=== PATIENT | female | born 1990 | race African-American/Black ===

== ENCOUNTER 2021-06-20 13:38 | Emergency (ER) | payer OTHER ==
[~2021-06-20] VITALS: Ht 167.6 cm; Wt 62.1 kg
[2021-06-20 13:39] VITALS: BP 146/75
[2021-06-20] MEDS ORDERED: ACETAMINOPHEN TAB 650MG DOSE (2X325MG) PO ONE (17:30)
[2021-06-20] MEDS ORDERED: LIDOCAINE 5% (LIDODERM) PATCH TD ONE (17:30)
[2021-06-20] MEDS ORDERED: PRED20TA PO (17:32)
[2021-06-20] MEDS ORDERED: **NOTE PATIENT COMMENT** MISC XX SCH (21:00)
== END 2021-06-20 21:50 | disposition home or self-care (01) ==
LOC: M ED 13:38
DX: M54.50 Low back pain, unspecified (principal)

== ENCOUNTER 2021-09-27 12:19 | Emergency (ER) | payer OTHER ==
[~2021-09-27] VITALS: Ht 165.1 cm; Wt 61.8 kg
[~2021-09-27 12:19] MED LIST: PRED20TA PO
[2021-09-27] MEDS ORDERED: MAPA500C PO (12:28)
[2021-09-27] MEDS ORDERED: IBUP200C25 PO (12:28)
[2021-09-27] MEDS ORDERED: diazePAM 10 MG TAB PO ONE (13:15)
[2021-09-27] MEDS ORDERED: KETOROLAC 60MG 2ML VIAL IM ONE (13:15)
[2021-09-27 13:33] LABS: BASO % 0.5 % (0.0-1.0); EOS # 0.1 10^3/uL (0.0-0.5); EOS % 2.3 % (0.0-3.0); HEMATOCRIT 32.1 % (36.0-47.0); HEMOGLOBIN 11.2 g/dl (12.0-15.5); LYMPH # 1.2 10^3/uL (1.5-5.0); LYMPH % 28.6 % (24.0-44.0); MEAN CORPUSCULAR HEMOGLOBIN 29.5 pg (27.0-33.0); MEAN CORPUSCULAR HGB CONC 34.9 g/dl (32.0-36.5); MEAN CORPUSCULAR VOLUME 84.5 fl (80.0-96.0); MONO # 0.4 10^3/uL (0.0-0.8); MONO % 9.2 % (2.0-8.0); NEUTROPHILS # 2.6 10^3/uL (1.5-8.5); NEUTROPHILS % 59.2 % (36.0-66.0); PLATELET COUNT, AUTOMATED 196 10^3/uL (150-450); WHITE BLOOD COUNT 4.3 10^3/uL (4.0-10.0)
[2021-09-27] MEDS ORDERED: NAPR-837 PO (17:12)
[2021-09-27] MEDS ORDERED: LIDO1PAD TOP (17:12)
[2021-09-27] MEDS ORDERED: METH-1165 PO (17:12)
[2021-09-27 17:23] VITALS: BP 124/63
== END 2021-09-27 17:24 | disposition home or self-care (01) ==
LOC: M ED 12:19
DX: N83.291 Other ovarian cyst, right side (principal); M54.50 Low back pain, unspecified
CPT/HCPCS: 36415; 76856; 80047; 84702; 85025; 93976; 96374; 99284; J1885

== ENCOUNTER 2022-02-20 20:43 | Emergency (ER) | payer OTHER ==
[~2022-02-20] VITALS: Ht 165.1 cm; Wt 61.4 kg
[~2022-02-20 20:43] MED LIST changes: +IBUP200C25 PO; +LIDO1PAD TOP; +MAPA500C PO; +METH-1165 PO; +NAPR-837 PO
[2022-02-20] MEDS ORDERED: VITA100T59 PO (21:19)
[2022-02-21 02:05] LABS: HEMATOCRIT 32.6 % (36.0-47.0); HEMOGLOBIN 11.3 g/dl (12.0-15.5); MEAN CORPUSCULAR HEMOGLOBIN 28.4 pg (27.0-33.0); MEAN CORPUSCULAR HGB CONC 34.7 g/dl (32.0-36.5); MEAN CORPUSCULAR VOLUME 81.9 fl (80.0-96.0); PLATELET COUNT, AUTOMATED 198 10^3/uL (150-450); RED BLOOD COUNT 3.98 10^6/uL (4.00-5.40); WHITE BLOOD COUNT 3.3 10^3/uL (4.0-10.0)
[2022-02-21 02:28] LABS: URINE PREG TEST NEGATIVE (NEGATIVE)
[2022-02-21 02:32] LABS: ALBUMIN 4.1 G/DL (3.2-5.2); ALT/SGPT 11 U/L (7.0-40); BILIRUBIN,TOTAL 0.5 MG/DL (0.3-1.2); BLOOD UREA NITROGEN 13 MG/DL (9-23); CALCIUM LEVEL 8.9 MG/DL (8.5-10.1); CARBON DIOXIDE LEVEL 24 MMOL/L (20-31); CHLORIDE LEVEL 104 MMOL/L (98-107); CREATININE FOR GFR 0.77 MG/DL (0.55-1.30); GLOMERULAR FILTRATION RATE > 60.0 (>60); GLUCOSE, FASTING 100 MG/DL (60-100); POTASSIUM SERUM 3.6 MMOL/L (3.5-5.1); SODIUM LEVEL 138 MMOL/L (136-145); TOTAL PROTEIN 7.1 G/DL (5.7-8.2)
[2022-02-21] MEDS ORDERED: diazePAM 10MG/2ML SYRINGE (J3360 PER 5MG) IM ONE (03:30)
[2022-02-21] MEDS ORDERED: KETOROLAC 60MG 2ML VIAL IM ONE (03:30)
[2022-02-21 05:45] VITALS: BP 116/57
== END 2022-02-21 06:24 | disposition home or self-care (01) ==
LOC: M ED 20:43
DX: G89.29 Other chronic pain (principal); M51.26 Other intervertebral disc displacement, lumbar region; M51.27 Other intervertebral disc displacement, lumbosacral region; M48.061 Spinal stenosis, lumbar region without neurogenic claudication; M48.07 Spinal stenosis, lumbosacral region; Z79.899 Other long term (current) drug therapy
CPT/HCPCS: 72131; 80053; 84703; 85027; 87486; 87581; 87633; 87798; 96372; 99284; J1885; J3360

== ENCOUNTER → 2022-04-17 | Outpatient (CLI) | payer OTHER ==
[~2022-04-17] MED LIST changes: +VITA100T59 PO
== END ==
LOC: M PLAIMG 07:16
PROVIDERS: ATTEND Physician Assistant
DX: M51.36 Other intervertebral disc degeneration, lumbar region (principal); M54.59 Other low back pain

== ENCOUNTER 2022-05-10 18:26 | Emergency (ER) | payer OTHER ==
[~2022-05-10] VITALS: Ht 162.6 cm; Wt 60.2 kg
[2022-05-10] MEDS ORDERED: MELO15TA28 PO (18:35)
[2022-05-10] MEDS ORDERED: SUMA25TA3 PO (18:35)
[2022-05-10 19:36] LABS: RSV AMPLIFICATION NEGATIVE (NEGATIVE)
[2022-05-11] MEDS ORDERED: LIDOCAINE 5% (LIDODERM) PATCH TD ONE (06:25)
[2022-05-11] MEDS ORDERED: ACETAMINOPHEN 500 MG TAB PO ONE (06:25)
[2022-05-11 07:47] LABS: BASO % 0.3 % (0.0-1.0); EOS # 0.1 10^3/uL (0.0-0.5); EOS % 4.2 % (0.0-3.0); HEMATOCRIT 37.3 % (36.0-47.0); HEMOGLOBIN 12.7 g/dl (12.0-15.5); LYMPH # 1.2 10^3/uL (1.5-5.0); LYMPH % 42.2 % (24.0-44.0); MEAN CORPUSCULAR HEMOGLOBIN 28.3 pg (27.0-33.0); MEAN CORPUSCULAR VOLUME 83.3 fl (80.0-96.0); MONO # 0.3 10^3/uL (0.0-0.8); MONO % 9.4 % (2.0-8.0); NEUTROPHILS # 1.3 10^3/uL (1.5-8.5); NEUTROPHILS % 43.9 % (36.0-66.0); PLATELET COUNT, AUTOMATED 214 10^3/uL (150-450); RED BLOOD COUNT 4.48 10^6/uL (4.00-5.40); WHITE BLOOD COUNT 2.9 10^3/uL (4.0-10.0)
[2022-05-11 07:56] LABS: BLOOD UREA NITROGEN 14 MG/DL (9-23); CALCIUM LEVEL 9.4 MG/DL (8.5-10.1); CARBON DIOXIDE LEVEL 28 MMOL/L (20-31); CHLORIDE LEVEL 107 MMOL/L (98-107); CREATININE FOR GFR 0.75 MG/DL (0.55-1.30); GLOMERULAR FILTRATION RATE > 60.0 (>60); GLUCOSE, FASTING 90 MG/DL (60-100); POTASSIUM SERUM 3.7 MMOL/L (3.5-5.1); SODIUM LEVEL 140 MMOL/L (136-145)
[2022-05-11 08:21] LABS: MONO SCRN NEGATIVE (NEGATIVE)
[2022-05-11] MEDS ORDERED: methocarbamoL 750 MG TAB PO ONE (09:10)
[2022-05-11] MEDS ORDERED: KETOROLAC 30 MG/ML 1ML VIAL IV ONE (09:10)
[2022-05-11 12:17] VITALS: BP 92/53
[2022-05-11] MEDS ORDERED: METH-1165 PO (13:26)
[2022-05-11] MEDS ORDERED: LIDO5DIS41 TOP (13:26)
== END 2022-05-11 14:06 | disposition home or self-care (01) ==
LOC: M ED 18:26
DX: M54.31 Sciatica, right side (principal); M54.17 Radiculopathy, lumbosacral region; M43.06 Spondylolysis, lumbar region; M54.50 Low back pain, unspecified; G43.909 Migraine, unspecified, not intractable, without status migrainosus; Z79.1 Long term (current) use of non-steroidal anti-inflammatories (NSAID); Z79.818 Long term (current) use of other agents affecting estrogen receptors and estrogen levels; Z79.891 Long term (current) use of opiate analgesic; Z79.899 Other long term (current) drug therapy
CPT/HCPCS: 72148; 80048; 84702; 85025; 86308; 86618; 87631; 96374; 97110; 97161; 97530; 99284; J1885